=== PATIENT | female | born 1995 ===

== ENCOUNTER 2020-10-21 16:23 | Emergency (ER) | payer SELFPAY ==
[~2020-10-21] VITALS: Ht 162.6 cm; Wt 70.2 kg
[2020-10-21 16:24] VITALS: BP 112/73
== END 2020-10-21 19:12 | disposition left against medical advice (07) ==
LOC: M ED 16:23
DX: Z53.21 Procedure and treatment not carried out due to patient leaving prior to being seen by health care provider (principal)